=== PATIENT | male | born 1955 | race Caucasian/White ===

== ENCOUNTER 2021-10-14 04:52 | Observation (INO) | payer OTHER ==
[2021-10-14] MEDS ORDERED: Alum Hydrox/Mag Hydrox/Simeth 30 ML, Lidocaine 2% 15 ML PO STA ×2 (05:15)
[2021-10-14] MEDS ORDERED: Ondansetron 4 MG/2 ML SDV IVPUSH ONE (05:28)
[2021-10-14] MEDS ORDERED: HYDROmorphone 0.5 MG/0.5 ML Syringe IVPUSH ONE (05:29)
[2021-10-14] MEDS ORDERED: Sodium Chloride 0.9% 1,000 ML IV SCH (05:30)
[2021-10-14] MEDS ORDERED: Iopamidol 612 MG/ML 100 ML Bottle IVPUSH ONE (05:49)
[2021-10-14] MEDS ORDERED: Iopamidol 612 MG/ML 50 ML SDV IVPUSH ONE (05:49)
[2021-10-14] MEDS: Sodium Chloride 0.9% 10 ML Syringe FLUSH PRN ×2 (06:01→06:16)
[2021-10-14] MEDS ORDERED: HYDROmorphone 1 MG/ML Syringe IVPUSH ONE ×2 (06:42→09:50)
[2021-10-14] MEDS ORDERED: Acetaminophen 325 MG Tab PO PRN (08:27)
[2021-10-14] MEDS ORDERED: HYDROmorphone 0.5 MG/0.5 ML Syringe IVPUSH PRN ×3 (08:27→14:25)
[2021-10-14] MEDS ORDERED: Acetaminophen/HYDROcodone 325-5 MG Tab PO PRN (08:27)
[2021-10-14] MEDS ORDERED: Polyethylene Glycol 3350 Powder 17 GM Packet PO PRN (08:27)
[2021-10-14] MEDS ORDERED: Ondansetron 4 MG/2 ML SDV IV PRN (08:27)
[2021-10-14] MEDS ORDERED: HYDROmorphone 1 MG/ML Syringe IVPUSH PRN (11:20)
[2021-10-14] MEDS ORDERED: Albuterol 0.083% 2.5 MG/3 ML Neb Soln NEB ONE (11:30)
[2021-10-14] MEDS ORDERED: Dexamethasone 4 MG/ML 5 ML MDV ONE (12:00)
[2021-10-14] MEDS ORDERED: Lidocaine 1% 6 ML ONE (12:00)
[2021-10-14] MEDS ORDERED: HYDROmorphone 0.5 MG/0.5 ML Syringe ONE (12:00)
[2021-10-14] MEDS ORDERED: Rocuronium 50 MG/5 ML Vial ONE ×2 (12:00→12:56)
[2021-10-14] MEDS ORDERED: Ketorolac 30 MG/ML SDV ONE (12:00)
[2021-10-14] MEDS ORDERED: Ondansetron 4 MG/2 ML SDV ONE (12:00)
[2021-10-14] MEDS ORDERED: Propofol 200 MG/20 ML SDV ONE (12:01)
[2021-10-14] MEDS ORDERED: fentaNYL 250 MCG/5 ML SDV ONE (12:01)
[2021-10-14] MEDS ORDERED: Midazolam 1 MG/ML 2 ML SDV ONE (12:01)
[2021-10-14] MEDS ORDERED: Sugammadex Sodium 200 MG/2 ML VIAL ONE ×2 (12:02→13:05)
[2021-10-14] MEDS ORDERED: Lidocaine 1% with EPINEPHrine 1:100,000 20 ML MDV ONE (12:10)
[2021-10-14] MEDS ORDERED: Bupivacaine 0.5%/EPINEPHrine 1:200,000 50 ML MDV ONE (12:10)
[2021-10-14] MEDS ORDERED: ceFAZolin 1 GM Vial ONE (12:11)
[2021-10-14] MEDS ORDERED: Lidocaine 1% with EPINEPHrine 1:100,000 10 ML MDV ONE (12:59)
[2021-10-14] MEDS ORDERED: Lactated Ringers 1,000 ML ONE (13:35)
[2021-10-14] MEDS ORDERED: Ondansetron 4 MG/2 ML SDV IVPUSH PRN (14:25)
[2021-10-14] MEDS ORDERED: fentaNYL 100 MCG/2 ML SDV IVPUSH PRN (14:25)
[2021-10-14] MEDS ORDERED: Albuterol/Ipratropium 3.0-0.5 MG/3 ML Neb Soln NEB PRN (15:22)
[2021-10-14] MEDS: Atenolol 50 MG Tab PO SCH (18:12)
[2021-10-14] MEDS: Pantoprazole 40 MG Tab.CR PO SCH (18:12)
[2021-10-14] MEDS: Levothyroxine 75 MCG Tab PO SCH (18:12)
[2021-10-15] MEDS: Levothyroxine 75 MCG Tab PO SCH (05:00)
[2021-10-15] MEDS ORDERED: Nicotine 21 MG/24 Hr Patch TRDERM SCH (09:00)
[2021-10-15] MEDS ORDERED: Rosuvastatin 10 MG Tab PO SCH (09:00)
[2021-10-15] MEDS: Pantoprazole 40 MG Tab.CR PO SCH (09:10)
[2021-10-15] MEDS: Atenolol 50 MG Tab PO SCH (09:11)
== END 2021-10-15 10:45 | disposition home or self-care (01) ==
LOC: JD.ED 04:52 → JD.MS 08:27 → UNDOADMOB 08:27 → JD.SDS 11:17 → JD.MS 15:08
PROVIDERS: ADMIT Internal Medicine; ATTEND Internal Medicine
DX: K80.12 Calculus of gallbladder with acute and chronic cholecystitis without obstruction (principal); K42.9 Umbilical hernia without obstruction or gangrene; I10 Essential (primary) hypertension; H54.7 Unspecified visual loss; E03.9 Hypothyroidism, unspecified; E66.9 Obesity, unspecified; Z68.39 Body mass index [BMI] 39.0-39.9, adult; F17.210 Nicotine dependence, cigarettes, uncomplicated; Z71.6 Tobacco abuse counseling; Z79.890 Hormone replacement therapy
CPT/HCPCS: 36415; 47562; 49652; 74177; 80053; 83690; 83735; 84145; 84484; 85007; 85025; 85027; 85652; 86140; 94761; 96361; 96374; 96375; 96376; 99285; A9270; J0690; J1100; J1170; J1885; J2250; J2405; J2704; J3010; J3490; J7030; J7120; Q9967; 00790; 93010; 99140; 99217; 99219; 99284; G0378